=== PATIENT | female | born 1990 | race Asian ===

== ENCOUNTER 2022-04-12 20:15 | Emergency (ER) | payer OTHER ==
[~2022-04-12] VITALS: Ht 175.3 cm; Wt 113.4 kg
[2022-04-12 21:35] VITALS: BP 134/83; TEMP 97.8
== END 2022-04-12 21:35 | disposition home or self-care (01) ==
LOC: ED 20:15
DX: R10.84 Generalized abdominal pain (principal); Z32.02 Encounter for pregnancy test, result negative
CPT/HCPCS: 81002; 81025; 99282